=== PATIENT | female | born 1985 | race African-American/Black ===

== ENCOUNTER 2016-11-05 20:20 | Emergency (ER) | payer SELFPAY ==
[~2016-11-05] VITALS: Ht 172.7 cm; Wt 75.0 kg
[2016-11-05 21:17] VITALS: BP 127/85
[2016-11-05] MEDS ORDERED: KETOROLAC 60MG/2ML VIAL IM ONE (23:30)
== END 2016-11-06 00:48 | disposition left against medical advice (07) ==
LOC: ER 20:21
DX: M79.632 Pain in left forearm (principal); F17.200 Nicotine dependence, unspecified, uncomplicated; F12.10 Cannabis abuse, uncomplicated; Z88.8 Allergy status to other drugs, medicaments and biological substances
CPT/HCPCS: 99281

== ENCOUNTER 2016-11-06 01:25 | Emergency (ER) | payer SELFPAY ==
[~2016-11-06] VITALS: Ht 172.7 cm; Wt 75.0 kg
[2016-11-06 01:45] VITALS: BP 150/89
== END 2016-11-06 06:04 | disposition home or self-care (01) ==
LOC: ER 01:27
DX: S60.222A Contusion of left hand, initial encounter (principal); F17.200 Nicotine dependence, unspecified, uncomplicated; F12.10 Cannabis abuse, uncomplicated; W22.8XXA Striking against or struck by other objects, initial encounter; Y93.89 Activity, other specified; Y92.89 Other specified places as the place of occurrence of the external cause; Y99.8 Other external cause status; Z88.8 Allergy status to other drugs, medicaments and biological substances
CPT/HCPCS: 73090; 73130; 99284; A4565

== ENCOUNTER 2016-12-02 19:38 | Emergency (ER) | payer MEDICAID ==
[~2016-12-02] VITALS: Ht 172.7 cm; Wt 78.0 kg
[2016-12-02 20:58] VITALS: BP 169/93
== END 2016-12-03 04:16 | disposition left against medical advice (07) ==
LOC: ER 19:40
DX: J02.9 Acute pharyngitis, unspecified (principal); H92.03 Otalgia, bilateral; F17.200 Nicotine dependence, unspecified, uncomplicated; F12.10 Cannabis abuse, uncomplicated

== ENCOUNTER 2016-12-03 01:42 | Emergency (ER) | payer MEDICAID ==
[~2016-12-03] VITALS: Ht 172.7 cm; Wt 75.0 kg
[2016-12-03 01:53] VITALS: BP 150/92
== END 2016-12-03 02:55 | disposition left against medical advice (07) ==
LOC: ER 02:14
DX: R50.9 Fever, unspecified (principal); Z53.21 Procedure and treatment not carried out due to patient leaving prior to being seen by health care provider

== ENCOUNTER 2017-05-11 18:35 | Emergency (ER) | payer BC, MEDICAID ==
[~2017-05-11] VITALS: Ht 165.1 cm; Wt 74.0 kg
[2017-05-11 19:04] VITALS: BP 112/76
== END 2017-05-12 02:33 | disposition left against medical advice (07) ==
LOC: ER 19:07
DX: Z53.21 Procedure and treatment not carried out due to patient leaving prior to being seen by health care provider (principal)

== ENCOUNTER 2017-05-12 05:10 | Emergency (ER) | payer BC ==
[~2017-05-12] VITALS: Ht 170.2 cm; Wt 80.0 kg
[2017-05-12] MEDS ORDERED: LORAZEPAM 2MG/ML CPJ IV ONE (08:30)
[2017-05-12] MEDS ORDERED: DEXAMETHASONE 10 MG/ML VIAL IV ONE (08:30)
[2017-05-12] MEDS ORDERED: KETOROLAC 30MG/ML VIAL IV ONE (08:30)
[2017-05-12 08:44] LABS: CARBON DIOXIDE 24 mEq/L (21-32); CHLORIDE 105 mEq/L (98-107)
[2017-05-12 08:51] LABS: GLUCOSE URINE NEGATIVE (NEGATIVE); KETONES URINE NEGATIVE (NEGATIVE); LEUKOCYTE ESTERASE URINE 1+ (NEGATIVE); NITRITE URINE NEGATIVE (NEGATIVE); OCCULT BLOOD URINE NEGATIVE (NEGATIVE); PH URINE 6.5 (4.5-8.0); PROTEIN URINE 1+ (NEGATIVE); SPECIFIC GRAVITY URINE 1.012 (1.005-1.030)
[2017-05-12 08:56] LABS: COLOR URINE YELLOW (YELLOW)
[2017-05-12 08:57] LABS: CLARITY URINE SL HAZY (CLEAR)
[2017-05-12] MEDS ORDERED: IOHEXOL-300 100 ML BOTTLE ONE (11:41)
[2017-05-12 12:05] VITALS: BP 136/72
== END 2017-05-12 13:38 | disposition home or self-care (01) ==
LOC: ER 05:10
DX: L02.212 Cutaneous abscess of back [any part, except buttock and flank] (principal); F17.200 Nicotine dependence, unspecified, uncomplicated; F12.10 Cannabis abuse, uncomplicated; Z88.8 Allergy status to other drugs, medicaments and biological substances
CPT/HCPCS: 36415; 74177; 80048; 81001; 81025; 87086; 96374; 96375; 99285; J1100; J1885; J2060; Q9967; Z7610

== ENCOUNTER 2017-06-29 04:13 | Emergency (ER) | payer BC, MEDICAID ==
[~2017-06-29] VITALS: Ht 170.2 cm; Wt 78.0 kg
[2017-06-29] MEDS ORDERED: MAGNESIUM/ALUMINUM HYDROXIDE/SIMETHICONE 30ML UDC PO STA (04:43)
[2017-06-29] MEDS ORDERED: FAMOTIDINE 20MG/2ML VIAL IV STA (04:43)
[2017-06-29] MEDS ORDERED: ONDANSETRON HCL 4MG/2ML VIAL IV STA (04:43)
[2017-06-29] MEDS ORDERED: SODIUM CHLORIDE 0.9% 1,000 ML IV ONE (04:43)
[2017-06-29] MEDS ORDERED: CLONIDINE 0.1MG TABLET PO NR (05:08)
[2017-06-29 05:10] LABS: EOSINOPHILS % 1.3 % (0.0-5.0); HEMATOCRIT. 37.7 % (36.0-48.0); HEMOGLOBIN. 12.8 g/dL (12.0-16.0); LYMPHOCYTES % 29.8 % (20.0-50.0); MEAN CORPUSCULAR HEMOGLOBIN 36.5 pg (28.0-32.0); MEAN CORPUSCULAR VOLUME 107.1 fL (81.0-99.0); MONOCYTES % 12.2 % (2.0-8.0); NEUTROPHILS % 55.7 % (40.0-76.0); PLATELET 237 x1000/uL (130-400); RED BLOOD CELL COUNT 3.52 mill/uL (4.2-5.4); RED CELL DISTRIBUTION WIDTH 14.9 % (11.6-14.6)
[2017-06-29 05:26] LABS: CARBON DIOXIDE 27 mEq/L (21-32); CHLORIDE 104 mEq/L (98-107); ETHANOL BLOOD 284 mg/dL
[2017-06-29 05:27] LABS: HCG SCREEN NEGATIVE
[2017-06-29] MEDS ORDERED: SODIUM CHLORIDE 0.9% 1000ML BAG (SEPSIS BOLUS) IV ONE (06:00)
[2017-06-29 08:35] VITALS: BP 123/88
== END 2017-06-29 09:15 | disposition home or self-care (01) ==
LOC: ER 04:13 → CANBEDREQ 16:07
DX: F10.129 Alcohol abuse with intoxication, unspecified (principal); I16.0 Hypertensive urgency; E87.2 Acidosis; K21.9 Gastro-esophageal reflux disease without esophagitis; F17.210 Nicotine dependence, cigarettes, uncomplicated; F12.10 Cannabis abuse, uncomplicated; F10.229 Alcohol dependence with intoxication, unspecified
CPT/HCPCS: 36415; 80053; 83605; 83690; 84703; 85025; 93005; 96361; 96374; 96375; 99291; G0482; J2405; J3490; J7030; Z7610

== ENCOUNTER 2017-08-27 19:26 | Emergency (ER) | payer BC, MEDICAID | END 2017-08-28 08:03 | disposition left against medical advice (07) | LOC: ER 08-28 08:03 | DX: M25.532 Pain in left wrist (principal); Z53.21 Procedure and treatment not carried out due to patient leaving prior to being seen by health care provider ==

== ENCOUNTER 2017-08-27 23:49 | Emergency (ER) | payer BC, MEDICAID ==
[~2017-08-27] VITALS: Ht 170.2 cm; Wt 75.0 kg
[2017-08-28 04:10] VITALS: BP 137/65
== END 2017-08-28 04:11 | disposition home or self-care (01) ==
LOC: ER 08-28 00:33
DX: S63.502A Unspecified sprain of left wrist, initial encounter (principal); S39.81XA Other specified injuries of abdomen, initial encounter; R20.0 Anesthesia of skin; F12.10 Cannabis abuse, uncomplicated; F14.10 Cocaine abuse, uncomplicated; F17.200 Nicotine dependence, unspecified, uncomplicated; W22.8XXA Striking against or struck by other objects, initial encounter; Y93.89 Activity, other specified; Y92.89 Other specified places as the place of occurrence of the external cause; Y99.8 Other external cause status
CPT/HCPCS: 29125; 71045; 73110; 99284; A4565

== ENCOUNTER 2018-01-01 01:53 | Emergency (ER) | payer MEDICAID ==
[~2018-01-01] VITALS: Ht 172.7 cm; Wt 76.0 kg
[2018-01-01] MEDS ORDERED: SODIUM CHLORIDE 0.9% 1,000 ML IV ONE (05:49)
[2018-01-01 05:54] LABS: CLARITY URINE CLOUDY (CLEAR); COLOR URINE DARK YELLOW (YELLOW); KETONES URINE TRACE (NEGATIVE); LEUKOCYTE ESTERASE URINE 1+ (NEGATIVE); NITRITE URINE NEGATIVE (NEGATIVE); OCCULT BLOOD URINE TRACE (NEGATIVE); PROTEIN URINE 3+ (NEGATIVE); SPECIFIC GRAVITY URINE 1.022 (1.005-1.030)
[2018-01-01] MEDS ORDERED: ONDANSETRON HCL 4MG/2ML VIAL IV ONE (06:30)
[2018-01-01] MEDS ORDERED: FAMOTIDINE 20MG/2ML VIAL IV ONE (06:30)
[2018-01-01 06:33] LABS: BASOPHILS % 0.8 % (0.0-2.0); EOSINOPHILS % 0.4 % (0.0-5.0); HEMOGLOBIN. 12.1 g/dL (12.0-16.0); LYMPHOCYTES % 27.4 % (20.0-50.0); MEAN CORPUSCULAR HEMOGLOBIN 37.4 pg (28.0-32.0); MEAN PLATELET VOLUME 7.6 fl (7.4-10.4); MONOCYTES % 10.2 % (2.0-8.0); NEUTROPHILS % 61.2 % (40.0-76.0); PLATELET 300 x1000/uL (130-400); RED BLOOD CELL COUNT 3.24 mill/uL (4.2-5.4); RED CELL DISTRIBUTION WIDTH 14.9 % (11.6-14.6)
[2018-01-01 06:41] LABS: CHLORIDE 103 mEq/L (98-107); INR 1.1; PROTHROMBIN TIME 11.3 sec (9.4-11.6)
[2018-01-01 07:03] LABS: HCG SCREEN NEGATIVE
[2018-01-01] MEDS ORDERED: SODIUM CHLORIDE 0.9% 1000ML BAG (SEPSIS BOLUS) IV ONE (07:30)
[2018-01-01] MEDS ORDERED: CLINDAMYCIN 600 MG in DEXTROSE 5% WATER 50 ML IV ONE (07:30)
[2018-01-01] MEDS ORDERED: CEFTRIAXONE 1 G PREMIX 50 ML IV NR (07:30)
[2018-01-01] MEDS ORDERED: CLINDAMYCIN 600MG PREMIX 50 ML IV NR (08:15)
[2018-01-01] MEDS ORDERED: IOHEXOL-300 100 ML BOTTLE ONE (08:32)
[2018-01-01 09:08] VITALS: BP 132/87
[2018-01-01] MEDS ORDERED: BACITRACIN ZINC OINT UDPKT TOP ONE (10:15)
[2018-01-01 10:28] LABS: METHADONE URINE SCREEN NEGATIVE (NEGATIVE); OPIATES URINE SCREEN NEGATIVE (NEGATIVE)
[2018-01-01 10:29] LABS: *AMPHETAMINES SCREEN URINE NEGATIVE (NEGATIVE); *BARBITURATES SCREEN URINE NEGATIVE (NEGATIVE); *BENZODIAZEPINES SCREEN URINE NEGATIVE (NEGATIVE); PHENCYCLIDINE URINE SCREEN NEGATIVE (NEGATIVE)
[2018-01-01 10:51] LABS: *COCAINE SCREEN URINE PRESUMTIVE POSITIVE (NEGATIVE)
[2018-01-01 11:11] LABS: CANNABINOID URINE SCREEN PRESUMTIVE POSITIVE (NEGATIVE)
== END 2018-01-01 10:36 | disposition home or self-care (01) ==
LOC: ER 04:39
DX: R10.84 Generalized abdominal pain (principal); I10 Essential (primary) hypertension; F17.200 Nicotine dependence, unspecified, uncomplicated; F12.10 Cannabis abuse, uncomplicated; F14.10 Cocaine abuse, uncomplicated; X58.XXXA Exposure to other specified factors, initial encounter
CPT/HCPCS: 36415; 71045; 74177; 80053; 80305; 81003; 83605; 83690; 84703; 85025; 85610; 87040; 87086; 96365; 96366; 96368; 96375; 99285; G0482; J0696; J2405; J3490; J7030; J7040; Q9967; Z7610; J7060

== ENCOUNTER 2020-05-02 05:18 | Emergency (ER) | payer MEDICAID ==
[~2020-05-02] VITALS: Ht 172.7 cm; Wt 77.0 kg
[2020-05-02] MEDS ORDERED: ACETAMINOPHEN WITH CODEINE 300/30MG TABLET PO ONE (07:45)
[2020-05-02] MEDS ORDERED: HYDROCODONE/ACETAMINOPHEN 5/325MG TABLET PO ONE (08:15)
[2020-05-02 09:07] VITALS: BP 150/99
== END 2020-05-02 09:17 | disposition home or self-care (01) ==
LOC: ER 05:18
DX: S63.694A Other sprain of right ring finger, initial encounter (principal); W18.39XA Other fall on same level, initial encounter; Y93.89 Activity, other specified; Y92.89 Other specified places as the place of occurrence of the external cause; Y99.8 Other external cause status; I10 Essential (primary) hypertension; Z88.5 Allergy status to narcotic agent
CPT/HCPCS: 29130; 73140; 99283

== ENCOUNTER 2022-08-01 03:07 | Emergency (ER) | payer MEDICAID ==
[~2022-08-01] VITALS: Ht 172.7 cm; Wt 79.0 kg
[2022-08-01] MEDS ORDERED: IBUPROFEN 400MG TABLET PO ONE (04:15)
[2022-08-01] MEDS ORDERED: ACETAMINOPHEN 325MG TABLET PO ONE (04:15)
[2022-08-01] MEDS ORDERED: LIDOCAINE HCL 1% 20ML VIAL (Pyxis) INJ INFIL ONE (04:15)
[2022-08-01] MEDS ORDERED: IBUP-2028 MT (05:58)
[2022-08-01 06:30] VITALS: BP 140/92
== END 2022-08-01 06:38 | disposition home or self-care (01) ==
LOC: ER 03:07
DX: S92.324A Nondisplaced fracture of second metatarsal bone, right foot, initial encounter for closed fracture (principal); M25.532 Pain in left wrist; S01.81XA Laceration without foreign body of other part of head, initial encounter; J32.0 Chronic maxillary sinusitis; I10 Essential (primary) hypertension; V03.90XA Pedestrian on foot injured in collision with car, pick-up truck or van, unspecified whether traffic or nontraffic accident, initial encounter; Y93.01 Activity, walking, marching and hiking; Y92.488 Other paved roadways as the place of occurrence of the external cause; Z99.89 Dependence on other enabling machines and devices
CPT/HCPCS: 12011; 73110; 73600; 73630; 99284